=== PATIENT | female | born 1995 | race Caucasian/White ===

== ENCOUNTER 2018-02-14 15:51 | Inpatient (IN) | payer SELFPAY ==
[2018-02-14] MEDS ORDERED: Acetaminophen 500 MG TAB ONE (16:06)
[2018-02-14 16:15] LABS: #Basophils 0.2 thou/uL (0.0-0.2); #Eosinphils 0.2 thou/uL (0.0-0.7); #Lymphocytes 4.7 thou/uL (1.20-3.40); #Monocytes 1.3 thou/uL (0.11-0.59); #Neutrophils 10.6 thou/uL (1.40-6.50); %Eosinophils 1.2 % (0.0-10.0); %Lymphocytes 27.7 % (21.0-51.0); %Monocytes 7.9 % (0.0-10.0); %Neutrophils 62.3 % (42.0-75.0); Hemoglobin 14.1 g/dL (12.0-16.0); Mean Corpuscular HGB CONC 34.1 g/dL (32.0-36.0); Mean Corpuscular Hemoglobin 31.7 pg (27.0-31.0); Mean Corpuscular Volume 93.1 fL (78.0-98.0); Mean Platelet Volume 7.4 fL (7.4-10.4); Platelet Count 306 thou/uL (130-400); RBC Distribution Width 12.8 % (11.5-14.5); Red Blood Cell (RBC) Count 4.43 mill/uL (4.20-5.40)
[2018-02-14 16:22] LABS: BHCG - Serum Negative (NEGATIVE); Pregs Control Background? CLEAR/WHITE (CLR/WHITE); Pregs Control Bar Appear? YES (CONTROL BAR)
[2018-02-14 16:38] LABS: ALT (SGPT) 12 U/L (8-55); AST (SGOT) 16 U/L (5-34); Albumin 4.8 g/dL (3.5-5.0); Alkaline Phosphatase 60 U/L (40-150); Anion Gap 18 mmol/L (10-20); BUN (Urea Nitrogen) 11 mg/dL (7.0-18.7); Bilirubin, Total 0.4 mg/dL (0.2-1.2); Calc. Creatinine Clearance 0 mL/min (70-130); Calcium 9.8 mg/dL (7.8-10.44); Carbon Dioxide 20 mmol/L (22-29); Chloride 105 mmol/L (98-107); Estimated GFR-MDRD 79; Globulin 3.1 g/dL (2.4-3.5); Glucose 107 mg/dL (70-105); Protein, Total 7.9 g/dL (6.0-8.3); Sodium 140 mmol/L (136-145)
[2018-02-14 16:41] LABS: CKMB 0.5 ng/mL (0-6.6); Troponin I Less than 0.010 ng/mL (< 0.028)
[2018-02-14 16:42] LABS: Potassium 2.9 mmol/L (3.5-5.1)
[2018-02-14 17:23] LABS: Bilirubin Negative (Negative); Blood, Urine Negative (Negative); Clarity CLEAR (Clear); Glucose, Urine (Dipstick) Negative (Negative); Leukocyte Trace (Negative); Nitrite Negative (Negative); Protein, Urine (Dipstick) Negative (Neg-Trace); Specific Gravity, Urine 1.006 (1.002-1.036); Urobilinogen 0.2 mg/dL (0.2-1.0)
[2018-02-14 17:25] LABS: Bacteria/HPF None Seen HPF (None Seen); Hyaline Casts/LPF 0-3 HYALINE CAST LPF (0-3 Hyaline); RBC/HPF 0-3 HPF (0-3); Squamous Epithelial 0-3 HPF (0-3); WBC/HPF 0-3 HPF (0-3)
[2018-02-14] MEDS ORDERED: Piperacillin/Tazobactam 4.5 GM VIAL ONE (17:51)
--- NOTE | 2018-02-14 19:06 | RAD ---
TWO VIEWS CHEST: HISTORY: Tachycardia. Rash. TECHNIQUE: PA and lateral views of the chest are obtained. FINDINGS: The lungs are well aerated. No evidence of effusions, pneumonia, or pneumothorax is seen. IMPRESSION: Normal two views chest. POS: [facility]
[2018-02-14 20:08] LABS: HIV (1/2) Antibody/Antigen Non-Reactive (NonReactive); HIV 1/2 INDEX 0.08 S/CO (<1.00)
[2018-02-14] MEDS ORDERED: Acetaminophen 650 MG Suppository PR PRN (20:21)
[2018-02-14] MEDS ORDERED: Ondansetron ODT 4 MG TAB PO PRN (20:21)
[2018-02-14] MEDS ORDERED: Ondansetron HCl/PF 4 MG/2 ML Vial IVP PRN (20:21)
[2018-02-14] MEDS ORDERED: Sodium Chloride 0.9% 1,000 ML IV SCH (20:21)
[2018-02-14] MEDS ORDERED: Acetaminophen 325 MG TAB PO PRN (20:21)
[2018-02-14 20:36] VITALS: BMI 23.5
[2018-02-14] MEDS: Clindamycin/D5W 900 MG in Premix Bag 1 BAG IVPB SCH (20:57)
[2018-02-14 21:11] LABS: Amphetamine Not Detected (NotDetected); Barbiturates Screen Not Detected (NotDetected); Benzodiazepine Screen Not Detected (NotDetected); Cocaine Metabolite Screen Not Detected (NotDetected); Medtox Control Line Valid? VALID (VALID); Medtox Reader # READER 1; Methadone Not Detected (NotDetected); Methamphetamine Not Detected (NotDetected); Opiate Screen Not Detected (NotDetected); Oxycodone Screen Not Detected (NotDetected); Phencyclidine (PCP) Not Detected (NotDetected); THC/Cannabinoid Screen Detected (NotDetected); Tricyclic Screen Not Detected (NotDetected)
[2018-02-14 21:19] LABS: Lactic Acid 0.8 mmol/L (0.5-2.2)
--- NOTE | 2018-02-14 21:56 | PDOC.FPRHP ---
- History of Present Illness Chief Complaint: face rash History of Present Illness: Patient presented to ED for 2 wk history of worsening face rash. Started with a bug bite on chin that she scratched and started to develop a rash that spread. Tried topical OTC antifungals that did not help. Has not felt sick. Denies fever , abdominal pain, vaginal discharge, cough. Reports chills and diarrhea for one day. Has hx of SVT diagnosed and worked up by general warehouse worker in [place]. No medications or follow up. Notes her HR will increase with dehydration, stress, and in hospital as it gives her anxiety. She reports feeling anxious in ED today. ED Course: vanc, zosyn, 2L NS, 1g tylenol, K+ 40meq - Allergies/Adverse Reactions Allergies Allergy/AdvReac Type Severity Reaction Status Date / Time sertraline [From Zoloft] Allergy Verified 02/14/18 20:32 - Home Medications Medication Instructions Recorded Confirmed Type No Known 02/14/18 02/14/18 History - History PMHx: SVT PSHx: None FHx: CAD, HTN, [place] Social: Lives with aunt. Smokes 1/2-1 PPD for 10 years. Denies alcohol use. Uses marijuana. - Review of Systems General: reports: fever/chills. denies: weight/appetite/sleep changes Eyes: denies: eye pain, vision changes ENT: denies: nasal congestion, rhinorrhea Respiratory: denies: cough, congestion Cardiovascular: reports: palpitation. denies: chest pain Gastrointestinal: reports: diarrhea. denies: nausea, vomiting, abdominal pain Genitourinary: denies: incontinence, dysuria Skin: reports: rashes. denies: lesions Musculoskeletal: denies: pain, tenderness Neurological: denies: syncope, weakness Psychological: reports: anxiety. denies: depression - Vital signs BP: 107/70 HR: 62 RR: 20 Tmax: 98.9 Pox: 100% on RA Wt: 56.4 kg - Physical Exam Constitutional: NAD, awake, alert and oriented, well developed HEENT: normocephalic and atraumatic, EOMI, grossly normal vision, grossly normal hearing, MMM, oropharynx clear Neck: supple, trachea midline Heart: RRR, normal S1/S2, no murmurs/rubs/gallops, pulses present, no edema Lungs: CTAB, no respiratory distress, no rales/rhonchi, no wheezing Abdomen: soft, non-tender, bowel sounds present Musculoskeletal: normal structure, normal tone, ROM grossly normal Neurological: no focal deficit -Skin: pruritic erythematous rash with martinez crusting on chin and surrounding the nares. L axilla erythematous papule, no crusting seen. Psychiatric: normal mood and affect FMR H&P: Results - Labs Result Diagrams: 02/15/18 03:36 02/15/18 03:35 Lab results: WBC 17.0 thou/uL (4.8-10.8) H 02/14/18 16:00 Hgb 14.1 g/dL (12.0-16.0) 02/14/18 16:00 Hct 41.2 % (36.0-47.0) 02/14/18 16:00 MCV 93.1 fL (78.0-98.0) 02/14/18 16:00 Plt Count 306 thou/uL (130-400) 02/14/18 16:00 Neutrophils % 62.3 % (42.0-75.0) 02/14/18 16:00 Sodium 140 mmol/L (136-145) 02/14/18 16:00 Potassium 2.9 mmol/L (3.5-5.1) L* 02/14/18 16:00 Chloride 105 mmol/L (98-107) 02/14/18 16:00 Carbon Dioxide 20 mmol/L (22-29) L 02/14/18 16:00 BUN 11 mg/dL (7.0-18.7) 02/14/18 16:00 Creatinine 0.89 mg/dL (0.6-1.1) 02/14/18 16:00 Glucose 107 mg/dL (70-105) H 02/14/18 16:00 Lactic Acid 0.8 mmol/L (0.5-2.2) 02/14/18 20:56 Calcium 9.8 mg/dL (7.8-10.44) 02/14/18 16:00 Total Bilirubin 0.4 mg/dL (0.2-1.2) 02/14/18 16:00 AST 16 U/L (5-34) 02/14/18 16:00 ALT 12 U/L (8-55) 02/14/18 16:00 Alkaline Phosphatase 60 U/L (40-150) 02/14/18 16:00 CK-MB (CK-2) 0.5 ng/mL (0-6.6) 02/14/18 16:00 Serum Total Protein 7.9 g/dL (6.0-8.3) 02/14/18 16:00 Albumin 4.8 g/dL (3.5-5.0) 02/14/18 16:00 Urine Ketones Negative mg/dL (Negative) 02/14/18 17:07 Urine Blood Negative (Negative) 02/14/18 17:07 Urine Nitrite Negative (Negative) 02/14/18 17:07 Ur Leukocyte Esterase Trace (Negative) H 02/14/18 17:07 Urine RBC 0-3 HPF (0-3) 02/14/18 17:07 Urine WBC 0-3 HPF (0-3) 02/14/18 17:07 Ur Squamous Epith Cells 0-3 HPF (0-3) 02/14/18 17:07 Urine Bacteria None Seen HPF (None Seen) 02/14/18 17:07 FMR H&P: A/P - Plan 22 yo F presents for face rash and found to meet sepsis criteria. Sepsis 2/2 impetigo - in ED tachycardia, lactic acidosis, leukocytosis, febrile - UA neg, HIV neg, history not suggestive of PID, facial impetigo appears to be only infectious source at this time - received vanc, zosyn, and 2L in ED - responded to IVF, now hemodynamically stable - Lactic acid 3.1->0.8, will d/c IVF - on IV clindamycin. May consider transitioning to to topical or po abx in am pending patient's status - procalcitonin pending Hypokalemia - 2.9 on admission. Replaced in ED. - recheck on am labs SVT - history of SVT, never treated - pt attributes tachycardia to hospital anxiety - sinus tachycardia in ED, now tachycardia has resolved, in NSR Substance abuse - pos for cannabinoid - pt admits to smoking pot Diet: regular Ppx: SCDs Dispo: admit to medical floor FMR H&P: Upper Level - Pertinent history 22F p/w complaint of rash on chin and nose. She was bitten by an insect one week ago and has scratched the area continuously. Lesions have begun to weep and crust over the last several days and she presents to ED since they are not getting any better. She has not tried any creams or been to a clinic to receive antibiotics. She also has one lesion to the left axilla that has been pruritic as well. She denies any earache, sore throat, LAD, cough, SOB, abdominal pain, n /v/d. Patient has a known history of SVT that was diagnosed at age 13. It has been worked up by Pediatric cardiologists in [place]. No interventions or medications have ever been tried. She blames her tachycardia on anxiety and denies any CP or SOB. ED: Vancomycin 1G, Zosyn 4.5 G, KCl 40mEq PO, Tylenol 1G, NS 2L - Pertinent findings Vitals: 137/87 mmHg 91 bpm 20 RR 98.7F (highest of 101.5F) 99% on RA Gen: A&Ox3; in no acute distress HEENT: TM's pearly bennett with good light reflex; no ocular discharge or conjunctival injection; no posterior pharyngeal erythema; pain at 3rd molar of right mandible but no fluctuance, erythema, or drainage at site; no LAD of head or neck CV: elevated rate but regular rythym Pulm: CTA-B Abd: soft; non tender; no guarding Skin: honey crusted lesions to chin, left mandible, and philtrum of nose; one erythematous papule in right axilla with no surrounding fluctuance and minimal pain to palpation LA: 3.1 WBC: 17 K: 2.9 UDS: cannabinoids EKG: sinus tachycardia - Plan Date/Time: 02/14/18 777 1. Sepsis 2/2 skin infection: impetigo treated with Vanc and Zosyn in ED. Will transition to clindamycin for impetigo. Patient heart rate now below 90 bpm on the floor s/ 2L NS. Impetiginous lesions are the likely source given lack of other symptoms. Influenza negative. HIV negative. Oral cavity shows no signs of infection. Check Procal 2. Hypokalemia: repleted with oral potassium in ED. Trend and follow with AM labs 3. Lactic Acidosis: 3.1 in ED but has been given fluids. Recheck in 4 hours 4. Hx of SVT: asymptomatic currently. Heart rate has improved to below 90 bpm at time of H&P I, Darrin Mcdowell, have evaluated this patient and agree with findings/plan as outlined by medical intern resident. Pertinent changes/additions are listed here. Attending Addendum - Attending Addendum Date/Time: 02/15/18 0811. Seen and examined on 02/14, day of admission. I personally evaluated the patient and discussed the management with Dr. Mcghee and Jeremias. I agree with and repeated the History, Examination, Assessment and Plan documented above with any addition or exceptions noted below. Pt with no focal symptoms besides right jaw pain which has been going on for some time. Impetigo of face which is quite prominent, no evidence of ecthyma/ erysipelas. Denies new VD or abd pain. No complaints at time of exam and negative ros except as above. Tachy without murmur, wwp. No edema. ENT with no oral abscess, no tenderness suggestive of Lemierre's and no h/o pharyngitis. Abd soft and benign, NTTP. Await labs, continue antibiotics and will follow closely. Low suspicion for PE in light of workup and history.
[2018-02-15 05:02] LABS: #Basophils 0.1 thou/uL (0.0-0.2); #Eosinphils 0.2 thou/uL (0.0-0.7); #Lymphocytes 3.9 thou/uL (1.20-3.40); #Monocytes 0.9 thou/uL (0.11-0.59); #Neutrophils 6.3 thou/uL (1.40-6.50); %Basophils 1.1 % (0.0-1.0); %Eosinophils 1.8 % (0.0-10.0); %Lymphocytes 34.2 % (21.0-51.0); %Monocytes 7.5 % (0.0-10.0); %Neutrophils 55.4 % (42.0-75.0); Hemoglobin 11.7 g/dL (12.0-16.0); Mean Corpuscular HGB CONC 33.2 g/dL (32.0-36.0); Mean Corpuscular Hemoglobin 31.4 pg (27.0-31.0); Mean Corpuscular Volume 94.7 fL (78.0-98.0); Mean Platelet Volume 7.3 fL (7.4-10.4); Platelet Count 230 thou/uL (130-400); RBC Distribution Width 12.8 % (11.5-14.5); Red Blood Cell (RBC) Count 3.72 mill/uL (4.20-5.40); White Blood Cell (WBC) Count 11.4 thou/uL (4.8-10.8)
[2018-02-15 05:30] LABS: Anion Gap 13 mmol/L (10-20); BUN (Urea Nitrogen) 8 mg/dL (7.0-18.7); Calc. Creatinine Clearance 122 mL/min (70-130); Calcium 8.7 mg/dL (7.8-10.44); Carbon Dioxide 19 mmol/L (22-29); Chloride 112 mmol/L (98-107); Estimated GFR-MDRD Greater than 90; Glucose 81 mg/dL (70-105); Potassium 3.7 mmol/L (3.5-5.1); Sodium 140 mmol/L (136-145)
[2018-02-15] MEDS: Clindamycin/D5W 900 MG in Premix Bag 1 BAG IVPB SCH (05:57)
--- NOTE | 2018-02-15 06:07 | PDOC.FM ---
- Subjective Subjective: NAEO. Patient denies any fever/chills, N/V/D, CP, SOB, or palpitations. States she feels with this morning and is just tired. Otherwise, no complaints. Is ok goign home later today on topical or PO antibiotics. - Objective MAR Reviewed: Yes Vital Signs & Weight: Vital Signs (12 hours) Temp Pulse Resp BP Pulse Ox 02/15/18 04:00 98.8 F 73 20 112/74 99 02/15/18 00:36 98.5 F 74 20 96/59 L 97 02/14/18 20:19 100 02/14/18 20:00 98.9 F 62 20 107/70 100 Weight Weight 56.444 kg Result Diagrams: 02/15/18 03:36 02/15/18 03:35 Phys Exam - Physical Examination Constitutional: NAD HEENT: moist MMs, sclera anicteric, oral pharynx no lesions Neck: supple, full ROM Respiratory: no wheezing, no rales, no rhonchi, clear to auscultation bilateral Cardiovascular: RRR, no significant murmur Gastrointestinal: soft, non-tender, no distention, positive bowel sounds Neurological: non-focal, moves all 4 limbs Psychiatric: normal affect, A&O x 3 Skin: normal turgor Deviation from normal: impetiginous rash with mild classic honey-colored crusting over left chin -: and severe crusting around nares Dx/Plan (1) Impetigo Code(s): L01.00 - IMPETIGO, UNSPECIFIED Status: Acute (2) H/O supraventricular tachycardia Code(s): Z86.79 - PERSONAL HISTORY OF OTHER DISEASES OF THE CIRCULATORY SYSTEM Status: Chronic (3) Hypokalemia Code(s): E87.6 - HYPOKALEMIA Status: Resolved (4) Synthetic cannabinoid abuse Code(s): F19.10 - OTHER PSYCHOACTIVE SUBSTANCE ABUSE, UNCOMPLICATED Status: Acute - Plan Plan: 22 yo F presents for face rash and found to meet sepsis criteria. Sepsis 2/2 impetigo - Met sepsis criteria in ED w/ tachycardia, lactic acidosis, leukocytosis, & fever w/ rash as only obvious source of infection. - Received vanc, zosyn, and 2L in ED. Stopped IVFs on floor as patient was deemed to be hemodynamically stable w/ resolved lactic acidosis s/p IVF resuscitation. - procalcitonin negative at 0.03 - Started on IV clindamycin for impetigo. However, given neg procal & normal vitals overnight, will consider switching to PO vs. topical antibiotics today. Hypokalemia - Resolved as K was 3.7 this AM. - 2.9 on admission. Replaced in ED. Lactic acidosis: - Lactate 3.1 on admission but normalized to 0.8 s/p 2L IVFs in the ED. SVT - history of SVT, never treated - Patient attributes tachycardia on admission to hospital anxiety. - Remained in NSR rhythm overnight. Will continue to monitor. Substance abuse - UDS + for cannabinoids. - Patient admits to smoking pot. - Will relationship counselor on need to quit. Diet: regular Ppx: SCDs Dispo: Likely d/c later today on PO vs. topical Abx pending patient remains hemodynamically stable.
[2018-02-15 07:37] VITALS: BP 112/72
[2018-02-15 08:09] VITALS: TEMP 98.3
--- NOTE | 2018-02-15 16:31 | ADD-PRG ---
DATE OF SERVICE: 02/15/2018 ADDENDUM Ms. Pino was admitted yesterday with acute cellulitis of her lower chin and face. She was admitte d with fever and high white count and met sepsis criteria. This morning after several doses of intra venous antibiotic, she looks and feels much better. Her white count has dropped to near normal. She is afebrile. She will be discharged today on oral Cleocin. Follow up in our clinic in 10-14 days.
--- NOTE | 2018-02-16 01:49 | DIS-2 ---
DATE OF ADMISSION: 02/14/2018 DATE OF DISCHARGE: 02/15/2018 RESIDENT: Kortney Quarles MD ADMITTING ATTENDING: Kain Marinelli MD DISCHARGE ATTENDING: Terence Haq MD CONSULTS: None. PROCEDURE: Chest x-ray, which was completely normal; 2-view of the chest. PRIMARY DIAGNOSES: 1. Impetigo. 2. Hypokalemia. 3. Lactic acidosis. SECONDARY DIAGNOSES: 1. History of supraventricular tachycardia. 2. Cannabinoid abuse. DISCHARGE MEDICATIONS: Bactrim DS 1 tab p.o. b.i.d. for 10 days. DISCONTINUED MEDICATIONS: None. HOSPITAL COURSE: The patient is a 22-year-old female with a past medical history significant for a history of supraventricular tachycardia who presented to the Emergency Department with a chief complaint of a 2-week history of a worsening face rash. She said initially it started with a bug bite on her chin that she scratched and she subsequently developed a rash that spread from her chin to under her nose. Of note, the patient was determined to be septic secondary to her impetigo as she was tachycardic with associated leukocytosis with a white blood cell count of 17 and lactic acidosis with an elevated lactate of 3.1. She was also febrile at 101.5F. Lastly, her K was low at 2.9 on admission. The patient was given 2 liters of normal saline, 1 gram of Tylenol, K replacement, and IV vancomycin and Zosyn in the ED. Urinalysis and serology testing for HIV were both negative; however, her UDS was positive for cannabinoids. In addition, a flu nasal swab was done, which was negative; and blood cultures were drawn, which were preliminarily negative by the date of discharge. A chest x-ray was also obtained, which was completely normal. However, due to the patient's unstable vitals, she was admitted for observation overnight and continued on IV clindamycin for antibiotics. IV fluids were not continued once the patient reached the floor as she was tolerating food and liquids p.o. Repeat labs the morning of discharge were significant for a potassium within normal limits at 3.7, a lactic acid level of 0.8, and a white blood cell count of 11.4. The patient remained afebrile overnight and her other vitals also remained stable throughout the duration of her hospital stay. She was therefore deemed to be medically stable and cleared for discharge home on p.o. antibiotics with close outpatient follow-up recommended. DISPOSITION: Stable. DISCHARGE INSTRUCTIONS: 1. Location: Home. 2. Diet: Regular diet. No restrictions. 3. Activity: As tolerated. No restrictions. 4. Followup: The patient was instructed to follow up with the [facility] [place] [place] [facility] within 1 week of discharge. Documentation regarding financial assistance in order for the patient to be able to make this program was attempted to be administered; however, the patient left the hospital early before the resident could return to provide her with the necessary paperwork despite being instructed to stay in the hospital until this paperwork could be received. TANIA
--- NOTE | 2018-02-19 13:22 | EKG ---
Test Reason : Blood Pressure : / mmHG Vent. Rate : 181 BPM Atrial Rate : 181 BPM P-R Int : 000 ms QRS Dur : 066 ms QT Int : 254 ms P-R-T Axes : 068 062 050 degrees QTc Int : 441 ms Sinus tachycardia Nonspecific ST and T wave abnormality Abnormal ECG Confirmed by YESICA AGUAYO ([id number]), metropolitan editor PRESTON HOLBROOK ([id number]) on 02/19/2018 1:22:06 PM Referred By: Confirmed By:YESICA AGUAYO
== END 2018-02-15 10:27 | disposition home or self-care (01) | DRG 872 ==
LOC: ERS 15:51 → T4-A 19:16
PROVIDERS: ADMIT Emergency Medicine; ATTEND Emergency Medicine
DX: A41.9 Sepsis, unspecified organism (principal); K12.2 Cellulitis and abscess of mouth; I47.1 Supraventricular tachycardia; E87.2 Acidosis; L01.00 Impetigo, unspecified; F17.210 Nicotine dependence, cigarettes, uncomplicated; E87.6 Hypokalemia; F12.10 Cannabis abuse, uncomplicated; Z82.49 Family history of ischemic heart disease and other diseases of the circulatory system
CPT/HCPCS: 36415; 71046; 80048; 80053; 80306; 81003; 81015; 82553; 83605; 84145; 84484; 84703; 85025; 87040; 87086; 87389; 87804; 93005; 96361; 96365; 96367; J2543; J3370; J3490